=== PATIENT | female | born 1965 | race African-American/Black ===

== ENCOUNTER 2016-08-21 10:10 | Emergency (ER) ==
[2016-08-21 10:22] VITALS: BP 148/88
[2016-08-21] MEDS ORDERED: DECADRON IM ONE (11:50)
[2016-08-21] MEDS ORDERED: NORFLEX IM ONE (11:51)
--- NOTE | 2016-08-21 11:55 | PROVIDER DOCUMENTATION ---
HPI-Musculoskeletal Pain/Inj <Bibi Sy - Last Filed: 08/21/16 13:01> - GENERAL Source: patient <Trixie Wilkerson - Last Filed: 08/21/16 13:10> - GENERAL Chief Complaint: Extremity Injury Stated Complaint: EXTREMTIY PAIN Time Seen by Provider: 08/21/16 11:32 - HX OF PRESENT ILLNESS-MUSKULOSKELTAL Nature of Presenting Problem: 51 y/o BF c/o back pain x 3 days with radiation to LUE. States no hx of injury , heavy lifting, new workout regimen. Denies any numbness/tingling. States worse with movement. Denies any CP, SOB, new cough, bowel/bladder dysfunction, fever/chills, numbness/tingling. (Trixie Wilkerson) Review of Systems - Adult - REVIEW OF SYSTEMS - ADULT Constitutional: reports: no symptoms reported. denies: chills, fever Eyes: reports: no symptoms reported. denies: blurred vision, double vision Ears, Nose, Mouth & Throat: reports: no symptoms reported. denies: ear pain, nose pain Cardiovascular: reports: no symptoms reported. denies: chest pain, palpitations Respiratory: reports: no symptoms reported. denies: dyspnea on exertion, shortness of breath Gastrointestinal: reports: no symptoms reported. denies: nausea, vomiting Genitourinary: reports: no symptoms reported. denies: dysuria, discharge, frequency Musculoskeletal: reports: see HPI, back pain. denies: joint pain, joint swelling, neck pain Integumentary: reports: no symptoms reported. denies: nail changes, rash Neurological: reports: no symptoms reported. denies: numbness, paresthesia Psychiatric: reports: no symptoms reported Endocrine: reports: no symptoms reported. denies: cold intolerance, heat intolerance Hematologic/Lymphatic: reports: no symptoms reported. denies: easy bruising, prolonged bleeding Allergic/Immunologic: reports: no symptoms reported All Other Systems: Reviewed and Negative <Trixie Wilkerson - Last Filed: 08/21/16 13:10> Past History - Adult - PAST MEDICAL HISTORY-ADULT Review of Records: reports: Nursing Assessment Review, Medications Reviewed Major Childhood Illnesses: reports: denies history Musculoskeletal: reports: chronic pain, fibromyalgia - PRIOR SURGERIES/PROCEDURES Surgical/Procedure History: reports: BTL, other (carpal tunnel) - PRIOR HOSPITALIZATIONS Prior Hospitalizations: reports: none - IMMUNIZATION STATUS Childhood Immunizations: UTD Flu Vaccine: See Nurse Assessment - FAMILY HISTORY Family History: reviewed, not pertinent <Trixie Wilkerson - Last Filed: 08/21/16 13:10> Physical Exam-Injury Related - Physical Exam-Injury Related Initial Vital Signs Reviewed: Yes General Appearance: alert, mild distress Eyes: pink conjunctivae Head, Ears, Nose, Mouth & Throat: normocephalic/atraumatic, moist mucous membranes Neck: normal inspection. negative: C-spine tenderness Respiratory: lungs clear, normal breath sounds. negative: crackles, rales, rhonchi, stridor, wheezing Cardiovascular: regular rate, rhythm. negative: bradycardia, tachycardia Back Exam: normal inspection, no CVA tenderness, no vertebral tenderness, decreased range of motion Extremity: normal gait. negative: abnormal NV exam Integumentary: normal color, warm/dry, blanching Neurologic: negative: aphasia Psych/Mental Status: normal mood/affect, normal thought content, normal thought process, oriented x 3 <Trixie Wilkerson - Last Filed: 08/21/16 13:10> Progress - EKG 1 Time of EKG reading by physician:: 12:54 EKG Read and Signed by:: Arpit Parker EKG Interpretation (*Must complete 3 of following elements*): Abnormal Rate: 53 Rhythm: sinus bradycardia Comments: otherwise normal ECG <Bibi Sy - Last Filed: 08/21/16 13:01> - XRAY 1 XRAY Study: Thoracic Spine XRAY Interpretation: No fx or subluxation 2 XRAY Study: Lumbar Spine XRAY Interpretation: No fx or subluxation <Rock,Trixie KimberlyMarivel - Last Filed: 08/21/16 13:10> Departure <Bibi Sy - Last Filed: 08/21/16 13:01> - Departure Time of Disposition Order: 13:07 Certified Medical Emergency: Emergent <Caesar Wilkersonine KimberlyMarivel - Last Filed: 08/21/16 13:10> - Departure DIAGNOSIS: Arm pain, left Back pain Qualifiers: Back pain location: back pain in other location Chronicity: unspecified Qualified Code(s): M54.89 - Other dorsalgia Disposition: HOME 01 Condition: Stable Additional Instructions: Take medications as directed. Ice or heat to back and arm as needed for relief. Follow up with specialist for further management. ED Follow Up Instructions: You have been treated by a care provider in the Emergency Department. These instructions are being provided to you so you can have an understanding of how to care for yourself upon discharge. Upon discharge from the Emergency Department, you are responsible for making arrangements for follow-up care by a physician of your choice. Take all prescribed medications as directed. Return to the Emergency Department immediately for any new or worsening symptoms. You may call the Physician Referral phone number at [phone] to obtain a list of Physicians who are taking new patients. Prescriptions: Acetaminophen/Diphenhydramine [Percogesic Extra Str Caplet] 1 each PO Q6H PRN PRN #20 tablet PRN Reason: Pain Methocarbamol [Robaxin] 500 mg PO BID #30 tablet Referrals: Roverto Longoria MD [Primary Care Provider] - Héctor Joya MD [STAFF PHYSICIAN] - Attestation - Scribe Verification/Attestation Scribe:: Bibi Sy Acting as Scribe for:: Trixie Wilkerson Scribe documention review:: This chart was documented by a scribe and accurately reflects the service the provider performed and the decisions made by the provider. <Bibi Sy - Last Filed: 08/21/16 13:01> - Physician/ MATTY Attestation Patient care was provided by Advanced Practice Provider:: Yes Advanced Practice Provider:: Trixie Wlikerson Advanced Practice Provider documentation review:: The Mid-level provider documentation, treatment plan and medical decision making was reviewed by the physician who agrees with all treatment and medical decision making by the P. <Trixie Wilkerson - Last Filed: 08/21/16 13:10> Physician Attestation
--- NOTE | 2016-08-21 13:02 | EKG Report ---
Test Performed on : 08/21/2016 12:54:00 PM Test Reason : LUE PAIN Blood Pressure : / mmHG Vent. Rate : 053 BPM Atrial Rate : 053 BPM P-R Int : 184 ms QRS Dur : 076 ms QT Int : 426 ms P-R-T Axes : 069 078 078 degrees QTc Int : 399 ms Sinus bradycardia. Otherwise normal ECG When compared with ECG of 20-SEP-2011 12:52, Sinus rhythm. has replaced Atrial fibrillation. Unconfirmed Result
--- NOTE | 2016-08-21 14:44 | Diag Imaging Result Document ---
PROCEDURE NAME: THORACIC SPINE - 08/21/2016 THORACIC SPINE, AP AND LATERAL, 4 VIEWS: FINDINGS: There is no evidence of acute fracture or subluxation. There is some loss of height anteriorly of T5 and T7. There are no previous radiographs available for comparison. IMPRESSION: Degenerative and possible osteoporotic changes. No definite evidence of acute fracture or subluxation.
--- NOTE | 2016-08-21 17:20 | Diag Imaging Result Document ---
PROCEDURE NAME: LUMBAR SPINE - 08/21/2016 LUMBOSACRAL SPINE SERIES WITH OBLIQUES, 6 VIEWS: FINDINGS: The pedicles are intact. There is no evidence of fracture or subluxation. There is degenerative disk disease with anterior osteophyte formation at the L5-S1 level. IMPRESSION: No acute bony disease. Degenerative disk disease.
== END 2016-08-21 13:24 | disposition home or self-care (01) ==
LOC: P.ED 10:10
DX: M54.89 Other dorsalgia (principal); M79.602 Pain in left arm; M79.7 Fibromyalgia; G89.29 Other chronic pain; R94.31 Abnormal electrocardiogram [ECG] [EKG]; Z79.899 Other long term (current) drug therapy
CPT/HCPCS: 72072; 72110; 93005; 96372; J2360